=== PATIENT | male | born 2000 | race African-American/Black ===

== ENCOUNTER 2023-03-28 22:26 | Emergency (ER) | payer OTHER ==
[~2023-03-28] VITALS: Ht 170.2 cm; Wt 91.9 kg
[2023-03-29] MEDS ORDERED: CEPHALEXIN 500 MG CAP PO ONE (06:55)
[2023-03-29] MEDS ORDERED: CEPH500C PO (06:57)
[2023-03-29 07:48] VITALS: BP 152/78; TEMP 97.9; O2SAT 97
== END 2023-03-29 07:50 | disposition home or self-care (01) ==
LOC: M ED 22:26
DX: J02.0 Streptococcal pharyngitis (principal); Z79.2 Long term (current) use of antibiotics